=== PATIENT | male | born 2000 | race Two or more races ===

== ENCOUNTER 2024-01-31 18:38 | Observation (INO) | payer MEDICAID, SELFPAY ==
[2024-01-31 18:39] VITALS: BP 132/74; PULSE 49; RESP 17; TEMP 37.1; O2SAT 97
--- NOTE | 2024-01-31 19:04 | EKG_ITS ---
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
--- NOTE | 2024-01-31 19:47 | XR_ITS ---
Examination: PA chest single view Technique: Upright PA chest single view Exam date and time: January 31, 20242003 hrs. Indications: Bradycardia today. Findings: Mild enlargement cardiac contour No pneumonia or pulmonary edema. The osseous structures are intact Impression: Mild enlargement cardiac contour
--- NOTE | 2024-01-31 19:48 | EDRME_ITS ---
Rapid Medical Screening Exam [facility] Arrival date/time: 01/31/24 18:38 23M with no significant PMH presents to ED with 3 days of slow HR and dizziness that is worse with head movement. Patient denies drug/alcohol use and doesn't take any meds. Chief Complaint: Dizziness Vital signs: Vital Signs Temperature 98.7 F 01/31/24 18:39 Pulse Rate 49 L 01/31/24 18:39 Respiratory Rate 17 01/31/24 18:39 Blood Pressure 132/74 H 01/31/24 18:39 Pulse Oximetry (%) 97 01/31/24 18:39 Oxygen Delivery Method Room Air 01/31/24 18:39
[2024-01-31 19:55] LABS: Collection Type, Urine Clean Catch; RBC,Urine 0 /hpf (0-3); WBC,Urine 0 /hpf (0-5)
[2024-01-31 20:04] LABS: Bilirubin,Urine Negative (Negative); Blood,Urine Negative (Negative); Clarity,Urine Clear (Clear/Hazy); Color,Urine Colorless (Lt Yel-Yel); Glucose, Urine 4+ (Negative); Ketones,Urine Negative (Negative); Leukocyte Esterase,Urine Negative (Negative); Nitrite,Urine Negative (Negative); Protein,Urine Negative (Neg - Trace); Specific Gravity,Urine 1.025 (1.001-1.035); Squamous Epithelial Cell,Urine < 1 /hpf (0-5); Urobilinogen,Urine Negative mg/dL (0.0-1.0)
[2024-01-31 20:13] LABS: Basophils # (Auto) 0.1 Thou/mm3 (0.0-0.2); Basophils % (Auto) 1 % (0-2.5); Eosinophils # (Auto) 0.2 Thou/mm3 (0.0-0.5); Eosinophils % (Auto) 3 % (0-10); Hematocrit 44.7 % (41.0-53.0); Hemoglobin 15.5 g/dL (13.5-16.0); Immature Granulocytes % (Auto) 0 % (0-0); Immature Granulocytes Auto 0.01 Thou/mm3 (0.00-0.00); Lymphocytes # (Auto) 3.3 Thou/mm3 (1.0-4.8); Lymphocytes % (Auto) 40 % (10-50); Mean Corpuscular HGB Conc 34.7 g/dl (31.0-37.0); Mean Corpuscular Hemoglobin 30.2 pg (25.0-35.0); Mean Corpuscular Volume 87 fL (80-100); Monocytes # (Auto) 0.7 Thou/mm3 (0.0-0.8); Monocytes % (Auto) 9 % (0-12); Neutrophils # (Auto) 3.8 Thou/mm3 (1.8-7.7); Neutrophils % (Auto) 47 % (37-80); Nucleated Red Blood Cell % 0 /100 WBC (0); Platelet Count 185 Thou/mm3 (140-440); RDW Standard Deviation 40.4 fL (35.1-43.9); Red Blood Count 5.14 Miln/mm3 (4.50-5.90); White Blood Count 8.1 Thou/mm3 (3.8-10.6)
[2024-01-31 20:28] LABS: B-Type Natriuretic Peptide < 20 pg/mL (0-100)
[2024-01-31 20:29] LABS: Alanine Aminotransferase 242 U/L (10-49); Albumin, Serum 5.1 gm/dL (3.5-5.0); Albumin/Globulin Ratio 1.8 (1.2-2.2); Alcohol, Blood Medical < 3.0 mg/dL (0-10.0); Alkaline Phosphatase 172 U/L (46-116); Anion Gap 7 (7-16); Aspartate Amino Transferase 87 U/L (0-34); BUN/Creatinine Ratio 18 Ratio (12-20); Bilirubin,Total 0.5 mg/dL (0.3-1.2); Blood Urea Nitrogen 14 mg/dL (9-23); Calcium 10.2 mg/dL (8.3-10.6); Calcium (Corrected) 10.2 mg/dL (8.5-10.1); Carbon Dioxide 27.1 mMol/L (20.0-31.0); Chloride 100 mMol/L (98-107); Creatinine (Component) 0.8 mg/dL (0.6-1.3); Globulin 2.8 gm/dL (2.3-3.5); Glucose 331 mg/dL (74-106); Osmolality,Calculated 281 (275-295); Potassium 4.1 mMol/L (3.4-5.1); Sodium 134 mMol/L (136-145); Total Protein 7.9 gm/dL (5.7-8.2); Troponin I < 0.020 ng/mL (0.0-0.045); eGFR > 60 See Note
[2024-01-31 21:17] LABS: Amphetamine/Methamp Scrn,U Negative (Negative); Barbiturate Screen,Urine Negative (Negative); Benzodiazepines Screen,Urine Negative (Negative); Benzoylecgonine Screen, Ur Negative (Negative); Fentanyl Screen,Urine Negative (Negative); Opiate Screen,Urine Negative (Negative); THC Screen,Urine Negative (Negative)
[2024-01-31 21:33] LABS: Glucose Estimated Average 292 mg/dL (80-131); Hemoglobin A1C 11.8 % Hgb (4.8-6.0)
--- NOTE | 2024-01-31 21:41 | PD.EDDIZZY ---
ED Dizzyness RME/HPI General Chief Complaint: Dizziness Stated Complaint: LOW HR, DIZZY Arrival date/time: 01/31/24 18:38 Limitations: no limitations RME / HPI RME / HPI Narrative: 01/31/24 18:38 23M with no significant PMH presents to ED with 3 days of slow HR and dizziness that is worse with head movement. Patient denies drug/alcohol use and doesn't take any meds. DR. FUNK MAIN ED EVALUATION: 23 year old male presents to the Emergency Department with complaint of dizziness onset 3 days ago. Associated symptoms include polydipsia and polyuria, especially at night about 2-3 times. He also mentions losing about 10 pounds but unknown timeframe. His sister is at the bedside and states that he has periods where she thinks that his blood sugar drops and he becomes sweaty . She is given him candy 1 other time a few weeks ago that seem to make him better . The patient has not been eating sweets or sodas in the last 1 week. Denies any known diabetes history. PMHx: Denies any PMHx, surgeries, daily medications, or known allergies. No significant family history. Social Hx: Alcohol use, drinks 32 oz Modelo beer. Related Data Previous Rx's ?Medication ?Instructions ?Recorded blood sugar diagnostic (Blood #25 ea 01/31/24 Glucose Test strips) blood-glucose meter (Accu-Chek #1 ea 01/31/24 Guide Glucose Meter) blood-glucose sensor (FreeStyle #2 ea 01/31/24 Bennett 3 Sensor device) lancets 28 gauge (Comfort EZ #100 ea 01/31/24 Lancets) metformin 500 mg tablet 500 mg PO BID diabetes #60 tabs 01/31/24 Allergies Allergy/AdvReac Type Severity Reaction Status Date / Time No Known Allergies Allergy Verified 01/31/24 18:40 Review of Systems Review of Systems Systems Reviewed: All systems reviewed, normal except as documented Narrative Review of Systems: GEN: No fever, no chills, + weight loss (losing about 10 pounds but unknown timeframe), + polydipsia, + polyuria EYES: No discharge, no visual changes, no pain HEENT: No ear pain, no congestion, no sore throat PULM: No shortness of breath, no cough, no congestion CV: No chest pain, no dyspnea on exertion, no palpitations GI: No nausea, no vomiting, no diarrhea, no pain, no constipation : No frequency, no urgency and no dysuria MUSC/SKEL: No joint pain, no back pain SKIN: No rash PSYCH: No hallucinations, no depression HEME/LYMPH: No easy bleeding or bruising tendencies NEURO: No weakness, no headache, + dizziness Past Medical History Social History SMOKING STATUS: Never smoker SUBSTANCE USE: does not use ALCOHOL: Current ED Exam General Limitations: Present no limitations General appearance: Present alert and in no apparent distress Head Head exam: Present atraumatic, normocephalic and normal inspection Eye Eye exam: Present normal appearance, PERRL and EOMI ENT ENT exam: Present normal exam, normal oropharynx and mucous membranes moist Neck Neck exam: Present normal inspection, full ROM and trachea midline Chest Chest inspection: Present normal inspection and symmetric chest wall rise Respiratory Respiratory exam: Present normal lung sounds bilaterally Cardiovascular Cardiovascular exam: Present regular rate, normal rhythm and normal heart sounds Abdominal Exam Abdominal exam: Present soft and normal bowel sounds Extremities Exam Extremities exam: Present normal inspection and full ROM Back Exam Back exam: Present normal inspection and full ROM Neurological Exam Neurological exam: Present alert, oriented X3 and CN II-XII intact Psychiatric Psychiatric exam: Present normal affect and normal mood Skin Skin exam: Present warm, dry, intact and normal color Course Quality Measures none Orders Category Date Time Status COVID-19 Screening Questionnaire NOW Care 01/31/24 23:53 Active Decision to Admit X1 Care 01/31/24 23:53 Active EKG (ED ONLY) *Do not use* NOW Care 01/31/24 19:04 Completed EKG (ED Only) Stat Exams 01/31/24 19:04 Draft XR chest 1V portable Stat Exams 01/31/24 19:47 Completed A1C [Glycohemoglobin w (eAG)] Stat Lab 01/31/24 19:53 Completed Alcohol, Blood Medical Stat Lab 01/31/24 19:53 Completed B-Type Natriuretic Peptide Stat Lab 01/31/24 19:53 Completed CBC Stat Lab 01/31/24 19:53 Completed Comprehensive Metabolic Panel Stat Lab 01/31/24 19:53 Completed Drug Screen,Urine Stat Lab 01/31/24 19:49 Completed Magnesium Stat Lab 01/31/24 19:53 Completed Troponin I Stat Lab 01/31/24 19:53 Completed Urinalysis Stat Lab 01/31/24 19:49 Completed Insulin Regular Med 01/31/24 23:22 Discontinued 5 unit IV X1 ONE Sodium Chloride 0.9% 1000 ml [Ns] 1,000 ml Med 01/31/24 23:22 Active IV 999 mls/hr Vital Signs Vital signs: Vital Signs Temperature 98.7 F 01/31/24 18:39 Pulse Rate 49 L 01/31/24 18:39 Respiratory Rate 17 01/31/24 18:39 Blood Pressure 132/74 H 01/31/24 18:39 Pulse Oximetry (%) 97 01/31/24 18:39 Oxygen Delivery Method Room Air 01/31/24 18:39 Procedures -ED EKG Interpretation #1: Date of EK01/31/24 Time of EK:38 Rate: 49 Interpretation: Interpreted by me Additional EKG comment: sinus bradycardia, rate 49, normal intervals, flattening in lead 3, good R wave progression Dizziness MDM Narrative MDM Narrative:: I, Merna Liriano, am scribing for and in the presence of Dr. Funk. Differential diagnosis includes: New onset diabetes, arrhythmia, electrolyte abnormality, DKA, dehydration. 23 yo with 2 weeks of increased thirst, getting up multiple times at night to urinate, weight loss with elevated blood sugar in Emergency Department. Patient is also complaining of dizziness and EKG shows bradycardia of 49 however this may be normal for young person. With the combination of his high blood sugar and dizziness patient will need close follow-up for his diabetes 2300: Discussed the medicine team for consult for recommendations versus inpatient or outpatient treatment. 2332: The resident with Dr. Leblanc request metformin BID. I will ask our charge nurse has spoke to the warehouse assembly worker, to see if we can get diabetic teaching for how to give insulin, how to check his blood sugar, and other follow-up to include nutrition, pending follow-up in the clinic. This patient does not have primary care and likely will need to follow-up in the resident clinic. Patient data External records reviewed:: None (no previous visits) Clinical information provided by:: patient and spouse Social determinants that could affect healthcare access:: alcohol use (Alcohol use, drinks 32 oz Modelo beer.) Patient has the following chronic illnesses:: Denies any PMHx, surgeries, daily medications, or known allergies. How is presenting disease/condition affected by chronic disease/condition?: no chronic disease Evaluation data The following diagnostics were reviewed and interpreted by me:: lab results, radiology exam(s) and EKG tracing(s) Lab and/or radiology exams considered but not ordered:: none Interpretation Summary: CXR shows mild cardiomegaly, no CHF, no pneumonia, no infiltrates, according to my interpretation. ----- Exam: 1 view portable chest xray Indication: bradycardia My interpretation: Lungs clear, no consolidation, normal cardiac silhouette, soft tissue normal Overall impression: no acute process. Procedure(s): XR chest 1V portable Accession Number(s): [id number] cc: Mo Adhikari MD; Lito Cheek MD; Jerrod Botello PA-C~ Examination: PA chest single view Technique: Upright PA chest single view Exam date and time: January 31, 20242003 hrs. Indications: Bradycardia today. Findings: Mild enlargement cardiac contour No pneumonia or pulmonary edema. The osseous structures are intact Impression: Mild enlargement cardiac contour Dictated By: Lito Cheek MD Medications / Prescriptions Medications or Prescriptions considered but not ordered:: none Medication administrations:: Medication Administration History Sodium Chloride (Ns) 1,000 mls @ 999 mls/hr IV .Q1H1M ONE Stop: 02/01/24 00:22 Last Admin: 01/31/24 23:26 Dose: 999 mls/hr Documented By: LIANNE Discontinued Medications Insulin Human Regular (Insulin Hum Regular 1 Unit/0.01 Ml (Per Unit)) 5 unit IV X1 ONE Stop: 01/31/24 23:23 Last Admin: 01/31/24 23:26 Dose: 5 unit Documented By: LIANNE Co-signed By: ZOLTAN see above if any Consultations Consultation(s) initiated? (list below): Yes Consultation #1 (Physician, Specialty, Details): Discussed case with [Dr. Leblanc] from Hospitalist service regarding admission. Discussed patients ED course, exam findings, labs, and radiology results. States that since the patient has a HR of 47 and possible enlarged heart on the CXR, he will admit the patient for symptomatic bradycardia. Time: 23:52 Diagnosis Dizziness Differential Diagnosis: other (New onset diabetes, arrhythmia, electrolyte abnormality, DKA, dehydration) Most likely diagnosis given after review of the tests above:: see below Admission Indicated Admission indicated?: indicated Admission Request Was there a request for admission?: Yes Admission Attestation Admission request attestation: Discussed case with [] from Hospitalist service regarding admission. Discussed patients ED course, exam findings, labs, and radiology results. The Hospitalist [agrees,declines] to accept the patient for admission. Disposition Plan Disposition Plan: Admit Discharge Plan Prescriptions/Referrals Prescriptions/Med Rec: New metformin 500 mg tablet 500 mg PO BID MDD 1000 mg Qty: 60 0RF Rx Instructions: Take 1 tablet in the morning and 1 tablet in the evening (DME) FreeStyle Bennett 3 Sensor Device See Rx Instructions .Route Qty: 2 3RF Rx Instructions: As directed (DME) Blood Glucose Test Strip See Rx Instructions .Route Qty: 25 0RF Rx Instructions: As directed (DME) lancets [Comfort EZ Lancets] 28 gauge misc See Rx Instructions .Route Qty: 100 0RF Rx Instructions: As directed (DME) blood-glucose meter [Accu-Chek Guide Glucose Meter] Misc See Rx Instructions .Route Qty: 1 0RF Rx Instructions: As directed Referrals: Mo Adhikari MD [Primary Care Provider] - In 1 week Problem List Clinical Impression: Dizziness, Symptomatic bradycardia, Acute hyperglycemia Patient/Caregiver Discharge Instructions Other Activity Instructions:: Please follow up at the [facility] with Dr. Vargas on 02/02/2024 at 10:00 AM. Card has been provided. [address] [place], [place] [id number] Additional Instructions: Please follow-up with the clinic Friday morning at 10 AM so that you get further teaching for your new onset diabetes. Start all your medications/diet as per Dr. Leblanc. Return to the emergency department before your appointment on Friday if you have increasing dizziness, you feel like you are going to pass out, and are sweaty, you are vomiting cannot tolerate water, or any other concerns Print Language: New Zealander Stand Alone Forms: Geetha Award Info., Patient Portal Info Letter
[2024-01-31 22:53] VITALS: BP 121/71; PULSE 51; RESP 17; TEMP 36.9; O2SAT 97
[2024-01-31 22:54] VITALS: BP 121/78; PULSE 47; RESP 18; O2SAT 96
[2024-01-31] MEDS: SODIUM CHLORIDE 0.9% 1000 ML 1,000 ML 999 ML IV (23:26)
[2024-01-31] MEDS: INSULIN HUM REGULAR 1 UNIT/0.01 ML (PER UNIT) 5 UNIT IV (23:26)
--- NOTE | 2024-01-31 23:36 | ESCONSULT_ITS ---
HPI Data of Consult Primary Care Provider: Mo Adhikari MD Consult Narrative Reason for consult: New onset diabetes History of present illness: Patient is a Jamaican-speaking 23-year-old male with no known medical history who presented to the ED on 01/31/2024 with symptoms of dizziness which has been present for 3 days but worse today prompting him to come into the ED. Patient states that the dizziness feels like lightheadedness and is intermittent. He also endorses excessive thirst and excessive urination, especially during the night. He denies any nausea, vomiting, diarrhea, or abdominal pain. He denies fevers, chills, sweats, or shortness of breath. He states that he went to a massage place yesterday which gave him a vitamin to help with energy but felt it did not help. Patient is present with who speaks Gambian. Patient denies any personal history of having high blood sugars or diabetes or any known family history of diabetes. ED Course: -Initial vitals were notable for bradycardia of 40-50 otherwise hemodynamically stable -Labs significant for blood glucose 331, hemoglobin A1c 11.8, corrected calcium 10.2, AST 87, ALT 242, alkaline phosphatase 172 -UA notable for glucose 4+ -Internal medicine consultation was requested for new onset diabetes education and recommendations. Review of Systems Review of systems otherwise negative except what is mentioned above. cc:: cc: Past Medical History Past Medical History Comments PMH COMMENT: Past Medical History: None Family History: No known past medical history of diabetes Surgical History: None Social History: Denies history of smoking, occasional alcohol use, denies recreational drug use Current Medications: None Allergies: No known drug allergies Exam Vital Signs Temp Pulse Resp BP Pulse Ox O2 Del Method 98.5 F 47 L 18 121/78 96 Room Air 01/31/24 22:53 01/31/24 22:54 01/31/24 22:54 01/31/24 22:54 01/31/24 22:54 01/31/24 22:54 Narrative Exam Physical Exam General: Awake and in no acute distress. Conversational and non-toxic appearing. HEENT: Normocephalic, atraumatic, mucous membranes dry. Heart: Regular rate and rhythm, no murmurs. Lungs: Clear to auscultation with no wheezing or crackles. Abdomen: Soft, nondistended, nontender, positive bowel sounds. ?No guarding or rebound tenderness. Neurologic: Alert and oriented x3, no gross neurological deficit, and patient able to move all 4 extremities. Extremities: No edema. Skin: No rash or ecchymoses. Results Labs 02/03/24 05:49 02/03/24 05:49 Labs: Short CBC 01/31/24 Range/Units 19:53 WBC 8.1 (3.8-10.6) Thou/mm3 Hgb 15.5 (13.5-16.0) g/dL Hct 44.7 (41.0-53.0) % Plt Count 185 (140-440) Thou/mm3 BMP 01/31/24 19:53 Sodium 134 L Potassium 4.1 Chloride 100 Carbon Dioxide 27.1 BUN 14 Creatinine 0.8 Glucose 331 H Calcium 10.2 Cardiac Enzymes 01/31/24 Range/Units 19:53 Troponin I < 0.020 (0.0-0.045) ng/mL Liver Function 01/31/24 Range/Units 19:53 Total Bilirubin 0.5 (0.3-1.2) mg/dL AST 87 H (0-34) U/L ALT 242 H (10-49) U/L Alkaline Phosphatase 172 H (46-116) U/L Albumin 5.1 H (3.5-5.0) gm/dL Urine 01/31/24 Range/Units 19:49 Urine Color Colorless A (Lt Yel-Yel) Urine Clarity Clear (Clear/Hazy) Urine pH 6.0 (5.0-7.0) Ur Specific [place] 1.025 (1.001-1.035) Urine Protein Negative (Neg - Trace) Urine Glucose (UA) 4+ A (Negative) Quality Measures Quality Measures none Medications Home Medications and Allergies Allergies Allergy/AdvReac Type Severity Reaction Status Date / Time No Known Allergies Allergy Verified 01/31/24 18:40 Visit Medications Sodium Chloride (Ns) 1,000 mls @ 999 mls/hr IV .Q1H1M ONE Stop: 02/01/24 00:22 Last Admin: 01/31/24 23:26 Dose: 999 mls/hr Discontinued Medications Insulin Human Regular (Insulin Hum Regular 1 Unit/0.01 Ml (Per Unit)) 5 unit IV X1 ONE Stop: 01/31/24 23:23 Last Admin: 01/31/24 23:26 Dose: 5 unit Assessment & Plan Plan Patient is a 23-year-old male with no known past medical history who presented to the ED on 01/31/2024 with a chief complaint of dizziness. Patient was found to have a blood glucose of 331 on chem panel and A1c of 11.8. Consultation was requested for recommendations for new onset diabetes. #New onset diabetes, type 1 versus type 2 #Hyperglycemia On ER evaluation blood glucose was 331, hemoglobin A1c 11.8. UA positive for glucose 4+. -Official Jamaican video quilt sewer was used and patient was provided 30 minutes of education regarding his new diagnosis of diabetes -Recommend starting metformin 500 mg BID -Patient was instructed to go to [facility] pharmacy tomorrow, Friday morning to picker operator prescriptions -Patient was prescribed FreeStyle Bennett 3 sensor and instructed to use his smart phone to follow glucose readings -Patient instructed to ask pharmacy regarding application of sensor, if cannot be placed then sensor to be brought to the clinic for help with application. Additional prescription has been sent for traditional glucose reader, lancets, and test strips in case Bennett is not covered by insurance. -Patient was instructed to follow up at the [facility] on 02/02/2024 at 10:[address] Vargas and was given business card with address and phone number Patient plan of care was discussed with the attending physician, Dr. Lowe. Rossi Vargas, PGY-2 Attending Provider Attestation/Addendum Patient was admitted for symptomatic bradycardia as discussed with the ER physician Dr. Dylon boyd. See separate H&P.
[2024-02-01] VITALS (8 sets, daily range): BP systolic 124–137; BP diastolic 66–109; PULSE 44–62; RESP 12–18; TEMP 36.1–36.4; O2SAT 97–100; BMI 26.4
--- NOTE | 2024-02-01 00:41 | ECHO_ITS ---
Transthoracic Echo Report Ht (in): 64 Wt (lb): 154 Exam Location: Portable Status: Inpatient Fire Lieutenant Marine: Yulissa Gonzalez Indications: Procedure Performed: BP: 122 / 74 HR: 55 Rhythm: Bradycardia Technical Quality: Fair MEASUREMENTS (Male / Female) Normal Values 2D ECHO LV Diastolic Diameter PLAX 5.3 cm 4.2 - 5.9 / 3.9 - 5.3 cm LV Systolic Diameter PLAX 3.7 cm IVS Diastolic Thickness 0.9 cm 0.6 - 1.0 / 0.6 - 0.9 cm LVPW Diastolic Thickness 0.9 cm 0.6 - 1.0 / 0.6 - 0.9 cm LV Relative Wall Thickness 0.3 LVOT Diameter 2.2 cm LA Volume Index 24.9 cm?/m? 16 - 28 cm?/m? Ascending Aorta Diameter 2.9 cm M-MODE Aortic Root Diameter MM 3.0 cm LA Systolic Diameter MM 3.8 cm LA Ao Ratio MM 1.3 AV Cusp Separation MM 2.3 cm DOPPLER AV Peak Velocity 162.0 cm/s AV Peak Gradient 10.5 mmHg AV Mean Gradient 5.0 mmHg AV Velocity Time Integral 31.9 cm LVOT Peak Velocity 103.0 cm/s LVOT Peak Gradient 4.2 mmHg LVOT Velocity Time Integral 19.6 cm LVOT Cardiac Index 2287.3 cm?/min?m? AV Area Cont Eq vti 2.3 cm? AV Area Cont Eq pk 2.4 cm? MV Peak Velocity 100.0 cm/s MV Peak Gradient 4.0 mmHg MV Mean Velocity 50.0 cm/s MV Mean Gradient 1.0 mmHg MV Area PHT 4.1 cm? Mitral E Point Velocity 93.6 cm/s Mitral A Point Velocity 66.9 cm/s Mitral E to A Ratio 1.4 LV E' Lateral Velocity 16.2 cm/s Mitral E to LV E' Lateral Ratio 5.8 LV E' Septal Velocity 12.3 cm/s Mitral E to LV E' Septal Ratio 7.6 TR Peak Velocity 206.0 cm/s TR Peak Gradient 17.0 mmHg FINDINGS Left Ventricle Normal left ventricular size, wall thickness, systolic function with no obvious regional wall motion abnormalities. The ejection fraction is visually estimated at 55-60%. Right Ventricle The right ventricle is normal in size and systolic function. The estimated right ventricular systoli c pressure, 32 mmHg. RAP 5. Left Atrium The left atrium is normal by two-dimensional, color flow and Doppler imaging with no structural abnormalities, no thrombus formation present. Right Atrium The right atrium is normal by two-dimensional imaging, color flow and Doppler imaging with no struct ural abnormalities, no thrombus formation present. Atrial Septum The interatrial septum appears normal with no evidence of a shunt. Aorta The aorta is normal by two-dimensional, color flow and Doppler interrogation. Mitral Valve The mitral valve is normal by two-dimensional, color flow and Doppler interrogation. There is trace mitral valve regurgitation. Aortic Valve The aortic valve is trileaflet and normal by two-dimensional, color flow and Doppler interrogation. There is no significant aortic valve regurgitation. Tricuspid Valve The tricuspid valve is normal by two-dimensional, color flow and Doppler interrogation. There is mil d tricuspid valve regurgitation. Pulmonic Valve There is no significant pulmonic valve regurgitation. Vessels The pulmonary artery appears normal. The inferior vena cava pulmonary and hepatic veins appear fabiola l. Pericardium The pericardium is normal by two-dimensional imaging. There is no significant pericardial effusion. CONCLUSIONS Normal LV size and function. Estimated EF 55-60% Normal RV size and function Trace MR. Mild TR. Daisy Osuna (Electronically Signed) Final Date: 02 February 2024 16:44
--- NOTE | 2024-02-01 00:46 | PD.HHHP ---
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 Patient had onset of symptoms 3 days prior to this admission. His is at bedside and translated. The patient feels dizzy with usual activity. Symptoms are mild to moderate lasting few minutes. No relieving factors mentioned. Symptoms exacerbated by movement or motion. He has no blurred vision. He is lightheaded. He has no syncopal or presyncopal episode. He denies headache. The patient mentioned that he had chest pain last year at this time. He is not short of breath. He has no nausea vomiting he drinks beer almost every day. He does not smoke. There is no family history reported. Patient was noted to have high blood glucose level in the emergency room. Initial evaluation was for diabetes education/consultation. However the patient was noted to have a heart rate in the 40s and symptomatic. Past medical history: No diabetes, no hypertension, no stroke, no cancer Surgical history: no appendectomy, no gallbladder surgery Personal history: non smoker, ETOH drinker, no recreational drug use. Family history: no diabetes, no hypertension, no heart disease, no cancer. Immunization: None reported Review of Systems Review of Systems Systems Reviewed: All systems reviewed, normal except as documented Meds Home Medications and Allergies Allergies Allergy/AdvReac Type Severity Reaction Status Date / Time No Known Allergies Allergy Verified 01/31/24 18:40 Exam Vital Signs Temp Pulse Resp BP Pulse Ox O2 Del Method 98.5 F 47 L 18 121/78 96 Room Air 01/31/24 22:53 01/31/24 22:54 01/31/24 22:54 01/31/24 22:54 01/31/24 22:54 01/31/24 22:54 Gen: alert, oriented, no distress Skin: warm, good turgor, no rash HEENT: NCAT, PHONG, no nasoaural discharge, moist mucous membranes Neck: supple, no JVD, no thyromegaly Lungs: clear to auscultation CV: bradycardic no murmurs, no edema Abd: soft and non tender, normoactive bowel sounds : no CVA tenderness Ext: no calf tenderness. Neuro: alert, oriented, non focal Psych: calm, cooperative, not depressed. Results - Hospitalist Labs Diagrams: 01/31/24 19:53 01/31/24 19:53 Labs: Short CBC 01/31/24 Range/Units 19:53 WBC 8.1 (3.8-10.6) Thou/mm3 Hgb 15.5 (13.5-16.0) g/dL Hct 44.7 (41.0-53.0) % Plt Count 185 (140-440) Thou/mm3 BMP 01/31/24 19:53 Sodium 134 L Potassium 4.1 Chloride 100 Carbon Dioxide 27.1 BUN 14 Creatinine 0.8 Glucose 331 H Calcium 10.2 Cardiac Enzymes 01/31/24 Range/Units 19:53 Troponin I < 0.020 (0.0-0.045) ng/mL Liver Function 01/31/24 Range/Units 19:53 Total Bilirubin 0.5 (0.3-1.2) mg/dL AST 87 H (0-34) U/L ALT 242 H (10-49) U/L Alkaline Phosphatase 172 H (46-116) U/L Albumin 5.1 H (3.5-5.0) gm/dL Urine 01/31/24 Range/Units 19:49 Urine Color Colorless A (Lt Yel-Yel) Urine Clarity Clear (Clear/Hazy) Urine pH 6.0 (5.0-7.0) Ur Specific [place] 1.025 (1.001-1.035) Urine Protein Negative (Neg - Trace) Urine Glucose (UA) 4+ A (Negative) Assessment & Plan -Hospitalist Patient Synopsis 23-year-old Russian-speaking male patient with no known past medical history was brought to the ER today complaining of dizziness for 3 days patient also has polyuria and polydipsia. The patient was found to have blood glucose of 331. His heart rate is in the 40s. Blood pressure stable. He is afebrile. Patient will be admitted for symptomatic bradycardia, however symptoms can be due to dehydration, hyperglycemia. He has elevated transaminases. He drinks alcohol almost daily. 1. Symptomatic bradycardia. -Patient heart rate in the 40s. The patient is dizzy with with movement and when he stood up. - Orthostatics checked in the ER, no orthostatic changes. -The patient will be admitted to [facility] telemetry/observation -Continue cardiac monitoring -Echocardiogram requested -EKG showed sinus bradycardia with indeterminate axis -Chest x-ray with minimally enlarged cardiac silhouette. 2. Hyperglycemia -Patient's A1c is 11.8 - DM 2 - lispro sliding scale, Lantus 10 unitis daily -Diabetes education will be provided. -Patient will need follow-up in the clinic/establish with endocrinology & PCP. 3. Transaminitis -probably related to chronic alcohol use. -check GGT 4. Pseudohyponatremia - no clinical significance. 5. Alcoholism - counselling, refer to SW - thiamine and Folic acid - DVT ppx: SCD GI ppx. Early ambulation if tolerated. Routine skin care. Review and reconcile home medications. Physical therapy eval and treatment as indicated. Smoking cessation as indicated. Code status: Full SDM: PCP: None none Daytime hospitalist will follow hospital course and make necessary diagnostic and treatment plan. Quality Measures Quality Measures none
[2024-02-01 01:52] LABS: Troponin I < 0.020 ng/mL (0.0-0.045)
[2024-02-01] MEDS: SODIUM CHLORIDE 0.9% 1000 ML 1,000 ML 125 ML IV (02:01)
--- NOTE | 2024-02-01 02:38 | PC.NURSE ---
report called to Tyrone RENEE
[2024-02-01 06:45] LABS: Alanine Aminotransferase 211 U/L (10-49); Albumin, Serum 4.8 gm/dL (3.5-5.0); Albumin/Globulin Ratio 2.3 (1.2-2.2); Alkaline Phosphatase 133 U/L (46-116); Anion Gap 7 (7-16); Aspartate Amino Transferase 80 U/L (0-34); BUN/Creatinine Ratio 17 Ratio (12-20); Bilirubin,Total 0.5 mg/dL (0.3-1.2); Blood Urea Nitrogen 12 mg/dL (9-23); Calcium 8.9 mg/dL (8.3-10.6); Calcium (Corrected) 8.9 mg/dL (8.5-10.1); Carbon Dioxide 25.8 mMol/L (20.0-31.0); Cardiac Risk Estimate 3.4 RATIO (4.0-6.7); Chloride 103 mMol/L (98-107); Cholesterol 188 mg/dL (132-200); Creatinine (Component) 0.7 mg/dL (0.6-1.3); Estimated Creatinine Clearance 135.1 mL/min (>60); Globulin 2.1 gm/dL (2.3-3.5); Glucose 237 mg/dL (74-106); HDL Cholesterol 56 mg/dL (40-60); LDL Cholesterol,Calculated 113 mg/dL (0-130); Magnesium 1.9 mg/dL (1.6-2.6); Osmolality,Calculated 279 (275-295); Sodium 136 mMol/L (136-145); Total Protein 6.9 gm/dL (5.7-8.2); Triglycerides 96 mg/dL (30-150); Troponin I < 0.020 ng/mL (0.0-0.045); eGFR > 60 See Note
--- NOTE | 2024-02-01 07:51 | PD.RESPRO ---
Documentation for date of: 02/01/24 Subjective Subjective Interval history: No acute overnight events. Patient had a restful sleep. Currently in bed, has not ambulated. Denies dizziness or lightheadedness. Denies fever, chills, headaches, chest pain, sob, cough, GI or urinary symptoms. Exam Vital Signs Temp Pulse Resp BP Pulse Ox O2 Del Method 97.0 F 62 17 136/109 H 100 Room Air 02/01/24 04:00 02/01/24 04:00 02/01/24 04:00 02/01/24 04:00 02/01/24 04:00 02/01/24 04:00 Narrative Exam GENERAL: HEENT: NCAT.?PHONG. Oral mucosa is moist. Patent Nares NECK: Supple, nontender, no thyromegaly, no meningismus, no JVD, no step offs CHEST: Symmetrical, atraumatic, and with equal expansion, Nontender on palpation no deformity and no crepitus. CARDIOVASCULAR: RRR, no m/g/r LUNGS: CTAB, no w/r/r. Symmetrical chest rise. No intercostal subcostal retraction. ABDOMEN: Soft, flat, nontender. No guarding/rebound tenderness/masses. +BS EXTREMITIES: Nontender.? No edema/cyanosis.?Moves all 4 extremities well, with full ROM and good CSM. SKIN: Warm and dry, no jaundice/rashes. MSK: No lumbar or midline, no CVA, no paraspinal muscle spasm or tenderness. NEURO: FISHER x4, CN II-XII grossly intact.?No focal neurologic deficits. PSYCHIATRIC: Normal mood and affect, cooperative, no SI or HI or hallucinations. Objective Labs 02/02/24 04:43 02/01/24 06:15 Labs: Laboratory Results - last 24 hr 01/31/24 01/31/24 02/01/24 19:49 19:53 01:15 WBC 8.1 RBC 5.14 Hgb 15.5 Hct 44.7 MCV 87 MCH 30.2 MCHC 34.7 RDW Std Deviation 40.4 Plt Count 185 Neut % (Auto) 47 Lymph % (Auto) 40 [place] % (Auto) 9 Eos % (Auto) 3 Baso % (Auto) 1 Neut # (Auto) 3.8 Lymph # (Auto) 3.3 [place] # (Auto) 0.7 Eos # (Auto) 0.2 Baso # (Auto) 0.1 Immature Gran # (Auto) 0.01 H Absolute Nucleated RBC 0.00 Immature Gran % 0 Nucleated RBC % 0 Sodium 134 L Potassium 4.1 Chloride 100 Carbon Dioxide 27.1 Anion Gap 7 BUN 14 Creatinine 0.8 Estim Creat Clear Calc Not Performed. eGFR > 60 BUN/Creatinine Ratio [address] Glu mg/dL 292 H Hemoglobin A1c 11.8 H Calculated Osmolality 281 Calcium 10.2 Corrected Calcium 10.2 H Magnesium 2.0 Total Bilirubin 0.5 AST 87 H ALT 242 H Alkaline Phosphatase 172 H Troponin I < 0.020 < 0.020 B-Natriuretic Peptide < 20 Total Protein 7.9 Albumin 5.1 H Globulin 2.8 Albumin/Globulin Ratio 1.8 Triglycerides Cholesterol LDL Cholesterol, Calc HDL Cholesterol Cholesterol/HDL Ratio TSH Ur Collection Type Clean Catch Urine Color Colorless A Urine Clarity Clear Urine pH 6.0 Ur Specific [place] 1.025 Urine Protein Negative Urine Glucose (UA) 4+ A Urine Ketones Negative Urine Blood Negative Urine Nitrite Negative Urine Bilirubin Negative Urine Urobilinogen (Auto) Negative Ur Leukocyte Esterase Negative Urine RBC 0 Urine WBC 0 Ur Squamous Epith Cells < 1 Urine Bacteria None Urine Opiates Screen Negative Urine Fentanyl Screen Negative Ur Barbiturates Screen Negative U Amphetamin/Meth Scrn Negative U Benzodiazepines Scrn Negative U Cocaine Metab Screen Negative U Marijuana (THC) Screen Negative Ethyl Alcohol < 3.0 02/01/24 06:15 WBC RBC Hgb Hct MCV MCH MCHC RDW Std Deviation Plt Count Neut % (Auto) Lymph % (Auto) [place] % (Auto) Eos % (Auto) Baso % (Auto) Neut # (Auto) Lymph # (Auto) [place] # (Auto) Eos # (Auto) Baso # (Auto) Immature Gran # (Auto) Absolute Nucleated RBC Immature Gran % Nucleated RBC % Sodium 136 Potassium 4.0 Chloride 103 Carbon Dioxide 25.8 Anion Gap 7 BUN 12 Creatinine 0.7 Estim Creat Clear Calc 135.1 eGFR > 60 BUN/Creatinine Ratio 17 Glucose [address] Glu mg/dL Hemoglobin A1c Calculated Osmolality 279 Calcium 8.9 Corrected Calcium 8.9 Magnesium 1.9 Total Bilirubin 0.5 AST 80 H ALT 211 H Alkaline Phosphatase 133 H D Troponin I < 0.020 B-Natriuretic Peptide Total Protein 6.9 Albumin 4.8 Globulin 2.1 L Albumin/Globulin Ratio 2.3 H Triglycerides 96 Cholesterol 188 LDL Cholesterol, Calc 113 HDL Cholesterol 56 Cholesterol/HDL Ratio 3.4 L TSH 6.50 H Ur Collection Type Urine Color Urine Clarity Urine pH Ur Specific [place] Urine Protein Urine Glucose (UA) Urine Ketones Urine Blood Urine Nitrite Urine Bilirubin Urine Urobilinogen (Auto) Ur Leukocyte Esterase Urine RBC Urine WBC Ur Squamous Epith Cells Urine Bacteria Urine Opiates Screen Urine Fentanyl Screen Ur Barbiturates Screen U Amphetamin/Meth Scrn U Benzodiazepines Scrn U Cocaine Metab Screen U Marijuana (THC) Screen Ethyl Alcohol Quality Measures Quality Measures none Assessment & Plan Assessment Current Active Medications: Generic Name Dose Route Start Last Admin Trade Name Freq PRN Reason Stop Dose Admin Acetaminophen 650 mg 02/01/24 00:35 Acetaminophen 325 Mg Tablet PO 03/02/24 00:34 Q6H PRN Fever >101.5 Dextrose 25 ml 02/01/24 00:53 Dextrose 50%-Water Inj 50 Ml Syringe IV 03/02/24 00:52 Q15MIN PRN BG 50-70 responsive npo pt Dextrose 50 ml 02/01/24 00:53 Dextrose 50%-Water Inj 50 Ml Syringe IV 03/02/24 00:52 Q15MIN PRN BG <50 OR BG <70 & pt unresponsive Folic Acid 1 mg 02/01/24 09:00 Folic Acid 1 Mg Tablet PO 03/02/24 08:59 DAILY BROOK Glucagon 1 mg 02/01/24 00:53 Glucagon Inj 1 Mg Vial IM Q15MIN PRN BG <70, and no IV access Sodium Chloride 1,000 mls @ 125 mls/hr 02/01/24 00:45 02/01/24 02:01 Ns IV 02/01/24 08:44 125 mls/hr .Q8H ONE Administration Insulin Human Lispro 0 unit 02/01/24 07:30 Insulin Lispro (Admelog) 1 Unit/0.01 Ml Unit SC 03/02/24 07:29 ACHS [facility] Protocol Thiamine HCl 100 mg 02/01/24 09:00 Thiamine 100 Mg Tablet PO 03/02/24 08:59 DAILY BROOK Plan In summary: 3-year-old male with no PMHx, came to ED with 2 days of dizziness, polyuria, polydipsia. Admitted for symptomatic sinus bradycardia HR 40s, and new onset diabetes, GLUCOSE 231, A1c 11.8. Pending cardiology recommendations for bradycardia # Symptomatic bradycardia Admission HR 40s, BP 132/74, patient complains of dizziness on standing up. No orthostatic changes on check in ER EKG sinus bradycardia, CXR minimally enlarged cardiac silhouette Currently, HR 62, BP 136/109 ? Med/tele ? Pending echocardiogram ? Pending cardiology recommendations # New onset diabetes Not previously diagnosed, A1c 11.8, GLUCOSE 237 ? Diabetes education ? Accu-Cheks ? CHO consistent diet - lispro sliding scale, Lantus 10 unitis daily # Transaminitis Chronic alcohol use, admission ALT 211, AST 80, ALP 133, inconsistent with alcoholic hepatitis pattern. Denies abdominal pain ? Pending hepatitis panel ? Pending abdominal ultrasound ? Pending GGT # Pseudohyponatremia ? No clinical significance # Alcoholism ? Counselling, refer to SW ? Given banana bag x 1 ? Thiamine and Folic acid Health maintenance Diet: CHO consistent GI prophylaxis: Not indicated DVT prophylaxis: SCDs Antibiotics: Not indicated CODE STATUS: Full code Disposition: Pending cardiology recommendations Patient case was discussed with attending, Cal Martinez MD and senior resident Dr. Mcallister. Loree Renner DO PGYI Attending Provider Attestation/Addendum I reviewed labs, imaging, EKG, home medications and prior available records. Face to face evaluation was performed by me. I have personally examined the patient and discussed assessment and plan with the IM team. I reviewed the resident note and agree with the plan with exceptions as below. Symptomatic bradycardia: Likely related to hyperglycemia and less likely symptomatic bradycardia. Management of hyperglycemia as below. Ordered echocardiogram. Avoid beta-blockers and calcium channel blockers. Consulted cardiology. Continue telemetry. Transaminitis: Ordered liver ultrasound and acute hepatitis panel. Monitor LFTs. New onset diabetes mellitus: Likely type I. Started the patient on insulin Lantus plus sliding scale insulin. Monitor fingersticks.
[2024-02-01] MEDS: INSULIN LISPRO (AdmeLOG) 1 UNIT/0.01 ML UNIT SC ×4 (07:58→20:57)
--- NOTE | 2024-02-01 09:00 | EKG_ITS ---
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
[2024-02-01] MEDS: FOLIC ACID 1 MG TABLET PO (09:02)
[2024-02-01] MEDS: THIAMINE 100 MG TABLET PO (09:02)
--- NOTE | 2024-02-01 10:22 | XR_ITS ---
Examination: Abdomen sonogram, complete Date and time of exam: February 01, 2024 1106 hrs. Indications: Diagnosis acute hepatitis with abdominal pain beginning 5 days ago. Technique: Multiple real-time grayscale transabdominal sonographic images of the abdomen have been obtained. Findings: Normal gallbladder Normal common bile duct 0.3 cm Pancreatic head 2.3 cm Aorta not enlarged Liver 16.2 cm fatty infiltration no focal liver lesions Normal hepatopedal portal venous flow Patent IVC Right kidney 11.3 x 5.7 x 6.5 cm cortex 1.7 cm Left kidney 11.9 x 7.6 x 6.9 cm renal cortex 2.6 cm Moderate renal parenchymal scar formation No hydronephrosis Spleen 11.8 cm Impression: Normal gallbladder Normal common bile duct Mild hepatomegaly fatty liver Moderate bilateral renal parenchymal scar formation
--- NOTE | 2024-02-01 10:59 | PD.IMCONS ---
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 He has no syncopal or presyncopal episode. He denies headache. Patient was noted to have high blood glucose level in the emergency room. cc:: cc: Alvaro Lowe MD Meds Home Medications and Allergies Allergies Allergy/AdvReac Type Severity Reaction Status Date / Time No Known Allergies Allergy Verified 01/31/24 18:40 Exam Vital Signs Temp Pulse Resp BP Pulse Ox O2 Del Method 97.2 F 53 L 12 127/77 100 Room Air 02/01/24 08:00 02/01/24 08:00 02/01/24 08:00 02/01/24 08:00 02/01/24 08:00 02/01/24 08:00 Routine HEENT Exam Head: Present normocephalic and atraumatic Eye: Present EOMI and PERRL ENT: Present mucous membranes moist Routine Neck Exam Neck: Present supple and trachea midline Routine Respiratory Exam Respiratory: Present chest non-tender, lungs clear, normal breath sounds and no resp distress Routine Cardiovascular Exam Cardiovascular: Present RRR Routine Abdominal Exam Abdominal: Present soft and normoactive bowel sounds Routine Extremities Exam Extremities: Present full ROM Routine Skin Exam Skin: Present intact, dry and warm Routine Neurological Exam Neurological: Present alert, oriented X3 and CN II-XII intact Routine Psychiatric Exam Psychiatric: Present normal affect and normal thought process Results Labs 01/31/24 19:53 02/01/24 06:15 Labs: Short CBC 01/31/24 Range/Units 19:53 WBC 8.1 (3.8-10.6) Thou/mm3 Hgb 15.5 (13.5-16.0) g/dL Hct 44.7 (41.0-53.0) % Plt Count 185 (140-440) Thou/mm3 BMP 01/31/24 02/01/24 19:53 06:15 Sodium 134 L 136 Potassium 4.1 4.0 Chloride 100 103 Carbon Dioxide 27.1 25.8 BUN 14 12 Creatinine 0.8 0.7 Glucose 331 H 237 H D Calcium 10.2 8.9 Cardiac Enzymes 01/31/24 02/01/24 02/01/24 Range/Units 19:53 01:15 06:15 Troponin I < 0.020 < 0.020 < 0.020 (0.0-0.045) ng/mL Liver Function 01/31/24 02/01/24 Range/Units 19:53 06:15 Total Bilirubin 0.5 0.5 (0.3-1.2) mg/dL AST 87 H 80 H (0-34) U/L ALT 242 H 211 H (10-49) U/L Alkaline Phosphatase 172 H 133 H D (46-116) U/L Albumin 5.1 H 4.8 (3.5-5.0) gm/dL Urine 01/31/24 Range/Units 19:49 Urine Color Colorless A (Lt Yel-Yel) Urine Clarity Clear (Clear/Hazy) Urine pH 6.0 (5.0-7.0) Ur Specific [place] 1.025 (1.001-1.035) Urine Protein Negative (Neg - Trace) Urine Glucose (UA) 4+ A (Negative) Assessment and Plan Assessment and plan (1) Dizziness: Status: Acute (2) Diabetes 1.5, managed as type 2: Status: Acute Additional Assessment & Plan Additional Plan: pt's symptoms are most likely due to new onset diabetes contiue treatement for diabetes troponin negative obtain echo
[2024-02-01 13:15] LABS: Troponin I < 0.020 ng/mL (0.0-0.045)
[2024-02-01 14:34] LABS: Hepatitis A Antibody IgM Non Reactive (Non React); Hepatitis B Core Antibody IgM Non Reactive (Non React); Hepatitis B Surface Antigen Non Reactive (Non React); Hepatitis C Antibody Non Reactive (Non React)
[2024-02-02] VITALS: BP 129/72; PULSE 50; PULSE 56; RESP 20; TEMP 36.2; O2SAT 98
[2024-02-02 04:00] VITALS: BP 120/65; PULSE 47; PULSE 52; RESP 14; TEMP 36.6; O2SAT 97
[2024-02-02 05:16] LABS: Basophils # (Auto) 0.1 Thou/mm3 (0.0-0.2); Basophils % (Auto) 1 % (0-2.5); Eosinophils # (Auto) 0.2 Thou/mm3 (0.0-0.5); Eosinophils % (Auto) 3 % (0-10); Hematocrit 45.7 % (41.0-53.0); Hemoglobin 15.7 g/dL (13.5-16.0); Immature Granulocytes % (Auto) 0 % (0-0); Immature Granulocytes Auto 0.01 Thou/mm3 (0.00-0.00); Lymphocytes # (Auto) 2.8 Thou/mm3 (1.0-4.8); Lymphocytes % (Auto) 36 % (10-50); Mean Corpuscular HGB Conc 34.4 g/dl (31.0-37.0); Mean Corpuscular Hemoglobin 29.8 pg (25.0-35.0); Mean Corpuscular Volume 87 fL (80-100); Monocytes # (Auto) 0.7 Thou/mm3 (0.0-0.8); Monocytes % (Auto) 9 % (0-12); Neutrophils # (Auto) 3.8 Thou/mm3 (1.8-7.7); Neutrophils % (Auto) 50 % (37-80); Nucleated Red Blood Cell % 0 /100 WBC (0); Platelet Count 107 Thou/mm3 (140-440); RDW Standard Deviation 40.3 fL (35.1-43.9); Red Blood Count 5.26 Miln/mm3 (4.50-5.90); White Blood Count 7.6 Thou/mm3 (3.8-10.6)
[2024-02-02 05:40] LABS: Magnesium 2.2 mg/dL (1.6-2.6)
--- NOTE | 2024-02-02 07:48 | ESPR_ITS ---
<Statement entered by Noel Dos Santos MD - 02/03/24 08:27> Patient was seen and examined by me personally. I agree with most of the assessment and plan as discussed with the internship physician, and my attending, Dr. Martinez. Vitals, labs reveiwed, bradycardia noted. Pending echo. Appreciate cardio recs. Counseled patient extensively about glycemic control, with at bedside. Noel Dos Santos MD, PGY-3 Documentation for date of: 02/02/24 Subjective Subjective Interval history: No acute overnight events. Tolerating oral diet without nausea or vomiting. Ambulating within the room independently without lightheadedness. Denies fever, chills, headaches, chest pain, sob, cough, GI or urinary symptoms. Exam Vital Signs Temp Pulse Resp BP Pulse Ox O2 Del Method 97.8 F 47 L 14 120/65 97 Room Air 02/02/24 04:00 02/02/24 04:00 02/02/24 04:00 02/02/24 04:00 02/02/24 04:00 02/01/24 16:00 Narrative Exam GENERAL: HEENT: NCAT.?PHONG. Oral mucosa is moist. Patent Nares NECK: Supple, nontender, no thyromegaly, no meningismus, no JVD, no step offs CHEST: Symmetrical, atraumatic, and with equal expansion, Nontender on palpation no deformity and no crepitus. CARDIOVASCULAR: RRR, no m/g/r LUNGS: CTAB, no w/r/r. Symmetrical chest rise. No intercostal subcostal retraction. ABDOMEN: Soft, flat, nontender. No guarding/rebound tenderness/masses. +BS EXTREMITIES: Nontender.? No edema/cyanosis.?Moves all 4 extremities well, with full ROM and good CSM. SKIN: Warm and dry, no jaundice/rashes. MSK: No lumbar or midline, no CVA, no paraspinal muscle spasm or tenderness. NEURO: FISHER x4, CN II-XII grossly intact.?No focal neurologic deficits. PSYCHIATRIC: Normal mood and affect, cooperative, no SI or HI or hallucinations. Objective Labs 02/03/24 05:49 02/03/24 05:49 Labs: Laboratory Results - last 24 hr 02/01/24 02/02/24 12:40 04:43 WBC 7.6 RBC 5.26 Hgb 15.7 Hct 45.7 MCV 87 MCH 29.8 MCHC 34.4 RDW Std Deviation 40.3 Plt Count 107 L D Neut % (Auto) 50 Lymph % (Auto) 36 [place] % (Auto) 9 Eos % (Auto) 3 Baso % (Auto) 1 Neut # (Auto) 3.8 Lymph # (Auto) 2.8 [place] # (Auto) 0.7 Eos # (Auto) 0.2 Baso # (Auto) 0.1 Immature Gran # (Auto) 0.01 H Absolute Nucleated RBC 0.00 Immature Gran % 0 Nucleated RBC % 0 Magnesium 2.2 Troponin I < 0.020 Hepatitis A IgM Ab Non Reactive Hep Bs Antigen Non Reactive Hep B Core IgM Ab Non Reactive Hepatitis C Antibody Non Reactive Quality Measures Quality Measures none Assessment & Plan Assessment Current Active Medications: Generic Name Dose Route Start Last Admin Trade Name Freq PRN Reason Stop Dose Admin Acetaminophen 650 mg 02/01/24 00:35 Acetaminophen 325 Mg Tablet PO 03/02/24 00:34 Q6H PRN Fever >101.5 Dextrose 25 ml 02/01/24 00:53 Dextrose 50%-Water Inj 50 Ml Syringe IV 03/02/24 00:52 Q15MIN PRN BG 50-70 responsive npo pt Dextrose 50 ml 02/01/24 00:53 Dextrose 50%-Water Inj 50 Ml Syringe IV 03/02/24 00:52 Q15MIN PRN BG <50 OR BG <70 & pt unresponsive Folic Acid 1 mg 02/01/24 09:00 02/01/24 09:02 Folic Acid 1 Mg Tablet PO 03/02/24 08:59 1 mg DAILY BROOK Administration Glucagon 1 mg 02/01/24 00:53 Glucagon Inj 1 Mg Vial IM Q15MIN PRN BG <70, and no IV access Insulin Human Lispro 0 unit 02/01/24 07:30 02/01/24 20:57 Insulin Lispro (Admelog) 1 Unit/0.01 Ml Unit SC 03/02/24 07:29 4 unit ACHS [facility] Administration Protocol Thiamine HCl 100 mg 02/01/24 09:00 02/01/24 09:02 Thiamine 100 Mg Tablet PO 03/02/24 08:59 100 mg DAILY BROOK Administration Plan In summary: 3-year-old male with no PMHx, came to ED with 2 days of dizziness, polyuria, polydipsia. Admitted for symptomatic sinus bradycardia HR 40s, and new onset diabetes, GLUCOSE 231, A1c 11.8. Cardiology following, recommended monitoring and treating diabetes. Echocardiogram pending. Patient will likely discharge tomorrow if echocardiogram negative. # Symptomatic bradycardia # Subclinical Hypothyroidism Admission HR 40s, BP 132/74, patient complains of dizziness on standing up. No orthostatic changes on check in ER EKG sinus bradycardia, CXR minimally enlarged cardiac silhouette Currently, HR 62, BP 136/109 TSH 6.5, free T4 1.3 normal Cardiology following, pending echo, no recs yet ? Med/tele ? Pending echocardiogram ? Pending cardiology recommendations ? Will need outpatient f/u with PCP, recheck TSH/fT4 in 3 months # New onset diabetes Not previously diagnosed, A1c 11.8, GLUCOSE 237 ? Diabetes education ? Accu-Cheks ? CHO consistent diet ? Lispro sliding scale, Lantus 10 unitis daily # Transaminitis Chronic alcohol use, admission ALT 211, AST 80, ALP 133, inconsistent with alcoholic hepatitis pattern. Denies abdominal pain ? Pending hepatitis panel ? Pending abdominal ultrasound ? Pending GGT # Pseudohyponatremia ? No clinical significance # Alcoholism ? Counselling, refer to SW ? Given banana bag x 1 ? Thiamine and Folic acid # Thrombocytopenia PLT 107 today, no signs of active bleed, Hgb 15.7 ? Daily CBC Health maintenance Diet: CHO consistent GI prophylaxis: Not indicated DVT prophylaxis: SCDs Antibiotics: Not indicated CODE STATUS: Full code Disposition: Pending cardiology recommendations Patient case was discussed with attending, Cal Martinez MD and senior resident Dr. Mcallister. Loree Renner DO PGYI Attending Provider Attestation/Addendum I reviewed labs, imaging, EKG, home medications and prior available records. Face to face evaluation was performed by me. I have personally examined the patient and discussed assessment and plan with the IM team. I reviewed the resident note and agree with the plan with exceptions as below. Symptomatic bradycardia: Likely related to hyperglycemia and less likely symptomatic bradycardia. Management of hyperglycemia as below. Ordered echocardiogram. Ordered free T4 that was WNL. Avoid beta-blockers and calcium channel blockers. Consulted cardiology. Continue telemetry. Transaminitis: Ordered liver ultrasound and acute hepatitis panel. Monitor LFTs. New onset diabetes mellitus: Likely type I. Started the patient on insulin Lantus plus sliding scale insulin. Monitor fingersticks. Thrombocytopenia: Mild. No signs of active bleeding. Monitor platelet level.
[2024-02-02 08:00] VITALS: BP 127/76; PULSE 48; PULSE 52; RESP 13; TEMP 36; O2SAT 98
[2024-02-02] MEDS: INSULIN LISPRO (AdmeLOG) 1 UNIT/0.01 ML UNIT SC ×4 (08:17→21:18)
[2024-02-02] MEDS: INSULIN GLARGINE (Lantus) 5 UNIT/0.05 ML (PER 5 UNITS) SC ×2 (08:18→21:21)
[2024-02-02] MEDS: FOLIC ACID 1 MG TABLET PO (08:19)
[2024-02-02] MEDS: THIAMINE 100 MG TABLET PO (08:19)
--- NOTE | 2024-02-02 09:41 | PC.SS ---
Patient is alert/oriented. at bedside. Patient is Vietnamese speaking only. assisted in interpretation. Patient is from home with family. He is independent with ADL's. Patient to return home with family upon discharge. Patient was admitted from [facility] for bradycardia. Patient follows at [facility] and last appt. was on Friday. He has never seen a Fat Purification Worker. Patient is newly diagnosed for diabetes. He will be getting new medication and teaching for this. Patient pharmacy is [facility]. Possible d/c home today or tomorrow. will be transporting patient home. is alt medical decision maker.
[2024-02-02 10:33] VITALS: BMI 28.0
[2024-02-02 11:47] LABS: Basophils # (Auto) 0.1 Thou/mm3 (0.0-0.2); Basophils % (Auto) 1 % (0-2.5); Eosinophils # (Auto) 0.2 Thou/mm3 (0.0-0.5); Eosinophils % (Auto) 2 % (0-10); Hematocrit 45.4 % (41.0-53.0); Hemoglobin 15.6 g/dL (13.5-16.0); Immature Granulocytes % (Auto) 0 % (0-0); Immature Granulocytes Auto 0.02 Thou/mm3 (0.00-0.00); Lymphocytes # (Auto) 2.3 Thou/mm3 (1.0-4.8); Lymphocytes % (Auto) 29 % (10-50); Mean Corpuscular HGB Conc 34.4 g/dl (31.0-37.0); Mean Corpuscular Hemoglobin 30.1 pg (25.0-35.0); Mean Corpuscular Volume 88 fL (80-100); Monocytes # (Auto) 0.8 Thou/mm3 (0.0-0.8); Monocytes % (Auto) 11 % (0-12); Neutrophils # (Auto) 4.5 Thou/mm3 (1.8-7.7); Neutrophils % (Auto) 57 % (37-80); Nucleated Red Blood Cell % 0 /100 WBC (0); Platelet Count 173 Thou/mm3 (140-440); RDW Standard Deviation 41.5 fL (35.1-43.9); Red Blood Count 5.18 Miln/mm3 (4.50-5.90)
[2024-02-02 12:00] VITALS: BP 122/74; PULSE 46; PULSE 55; RESP 15; TEMP 36.1; O2SAT 99
[2024-02-02 12:08] LABS: Anion Gap 6 (7-16); BUN/Creatinine Ratio 19 Ratio (12-20); Blood Urea Nitrogen 17 mg/dL (9-23); Carbon Dioxide 28.8 mMol/L (20.0-31.0); Chloride 100 mMol/L (98-107); Creatinine (Component) 0.9 mg/dL (0.6-1.3); Estimated Creatinine Clearance 115.9 mL/min (>60); Glucose 243 mg/dL (74-106); Osmolality,Calculated 279 (275-295); Potassium 4.1 mMol/L (3.4-5.1); Sodium 135 mMol/L (136-145); eGFR > 60 See Note
[2024-02-02 16:00] VITALS: BP 124/76; PULSE 52; PULSE 60; RESP 15; TEMP 36; O2SAT 98
[2024-02-02 20:00] VITALS: BP 132/66; PULSE 46; PULSE 59; RESP 16; TEMP 36.6; O2SAT 98
[2024-02-02] MEDS: INSULIN LISPRO (AdmeLOG) 1 UNIT/0.01 ML UNIT 5 UNIT SC (21:18)
[2024-02-03] VITALS: BP 94/61; PULSE 46; PULSE 60; RESP 16; TEMP 36.1; O2SAT 98
[2024-02-03 04:00] VITALS: BP 117/64; PULSE 45; PULSE 48; RESP 18; TEMP 36.1; O2SAT 98
[2024-02-03] MEDS: INSULIN LISPRO (AdmeLOG) 1 UNIT/0.01 ML UNIT 5 UNIT SC (05:21)
[2024-02-03 05:49] VITALS: BMI 28.0
[2024-02-03 06:22] LABS: Basophils # (Auto) 0.1 Thou/mm3 (0.0-0.2); Basophils % (Auto) 1 % (0-2.5); Eosinophils # (Auto) 0.2 Thou/mm3 (0.0-0.5); Eosinophils % (Auto) 3 % (0-10); Hematocrit 44.5 % (41.0-53.0); Hemoglobin 15.6 g/dL (13.5-16.0); Immature Granulocytes % (Auto) 0 % (0-0); Immature Granulocytes Auto 0.02 Thou/mm3 (0.00-0.00); Lymphocytes # (Auto) 2.7 Thou/mm3 (1.0-4.8); Lymphocytes % (Auto) 30 % (10-50); Mean Corpuscular HGB Conc 35.1 g/dl (31.0-37.0); Mean Corpuscular Hemoglobin 30.5 pg (25.0-35.0); Mean Corpuscular Volume 87 fL (80-100); Monocytes # (Auto) 0.8 Thou/mm3 (0.0-0.8); Monocytes % (Auto) 9 % (0-12); Neutrophils # (Auto) 5.1 Thou/mm3 (1.8-7.7); Neutrophils % (Auto) 57 % (37-80); Nucleated Red Blood Cell % 0 /100 WBC (0); Platelet Count 152 Thou/mm3 (140-440); RDW Standard Deviation 40.1 fL (35.1-43.9); Red Blood Count 5.12 Miln/mm3 (4.50-5.90); White Blood Count 8.9 Thou/mm3 (3.8-10.6)
[2024-02-03 07:02] LABS: Alanine Aminotransferase 289 U/L (10-49); Albumin, Serum 5.1 gm/dL (3.5-5.0); Albumin/Globulin Ratio 2.2 (1.2-2.2); Alkaline Phosphatase 119 U/L (46-116); Anion Gap 10 (7-16); Aspartate Amino Transferase 135 U/L (0-34); BUN/Creatinine Ratio 19 Ratio (12-20); Bilirubin,Total 0.8 mg/dL (0.3-1.2); Blood Urea Nitrogen 15 mg/dL (9-23); Calcium 9.7 mg/dL (8.3-10.6); Calcium (Corrected) 9.7 mg/dL (8.5-10.1); Carbon Dioxide 23.7 mMol/L (20.0-31.0); Chloride 102 mMol/L (98-107); Creatinine (Component) 0.8 mg/dL (0.6-1.3); Estimated Creatinine Clearance 130.3 mL/min (>60); Globulin 2.3 gm/dL (2.3-3.5); Glucose 166 mg/dL (74-106); Magnesium 2.1 mg/dL (1.6-2.6); Osmolality,Calculated 276 (275-295); Phosphorous 4.6 mg/dL (2.4-5.1); Potassium 3.8 mMol/L (3.4-5.1); Sodium 136 mMol/L (136-145); Total Protein 7.4 gm/dL (5.7-8.2); eGFR > 60 See Note
[2024-02-03 08:00] VITALS: BP 120/71; PULSE 53; PULSE 71; RESP 18; TEMP 36; O2SAT 99
[2024-02-03] MEDS: THIAMINE 100 MG TABLET PO (08:10)
[2024-02-03] MEDS: FOLIC ACID 1 MG TABLET PO (08:10)
[2024-02-03] MEDS: INSULIN LISPRO (AdmeLOG) 1 UNIT/0.01 ML UNIT SC ×3 (08:10→17:49)
--- NOTE | 2024-02-03 10:57 | PC.PT ---
PT eval received, Patient is 23y/o male. Patient is sitting on the EOB upon approached. Patient and at bedside states he has been ambulating to go to the restroom. No further needs at this time. Skilled PT not indicated at this time. Patient is I with transfers and ambulation without AD.
[2024-02-03 12:00] VITALS: BP 116/74; PULSE 58; PULSE 64; RESP 13; TEMP 36.3; O2SAT 99
--- NOTE | 2024-02-03 13:46 | PD.RESPRO ---
Documentation for date of: 02/03/24 Subjective Subjective Interval history: No acute overnight events. Still has mild dizziness when getting up. Denies fever, chills, headaches, chest pain, sob, cough, GI or urinary symptoms. Exam Vital Signs Temp Pulse Resp BP Pulse Ox O2 Del Method 96.8 F 53 L 18 120/71 99 Room Air 02/03/24 08:00 02/03/24 08:00 02/03/24 08:00 02/03/24 08:00 02/03/24 08:00 02/03/24 08:00 Narrative Exam GENERAL: Normal appearing adult male, NAD HEENT: NCAT.?PHONG. Oral mucosa is moist. Patent Nares NECK: Supple, nontender, no thyromegaly, no meningismus, no JVD, no step offs CHEST: Symmetrical, atraumatic, and with equal expansion, Nontender on palpation no deformity and no crepitus. CARDIOVASCULAR: RRR, no m/g/r LUNGS: CTAB, no w/r/r. Symmetrical chest rise. No intercostal subcostal retraction. ABDOMEN: Soft, flat, nontender. No guarding/rebound tenderness/masses. +BS EXTREMITIES: Nontender.? No edema/cyanosis.?Moves all 4 extremities well, with full ROM and good CSM. SKIN: Warm and dry, no jaundice/rashes. MSK: No lumbar or midline, no CVA, no paraspinal muscle spasm or tenderness. NEURO: FISHER x4, CN II-XII grossly intact.?No focal neurologic deficits. PSYCHIATRIC: Normal mood and affect, cooperative, no SI or HI or hallucinations. Objective Labs 02/03/24 05:49 02/03/24 05:49 Labs: Laboratory Results - last 24 hr 02/03/24 05:49 WBC 8.9 RBC 5.12 Hgb 15.6 Hct 44.5 MCV 87 MCH 30.5 MCHC 35.1 RDW Std Deviation 40.1 Plt Count 152 Neut % (Auto) 57 Lymph % (Auto) 30 Bath % (Auto) 9 Eos % (Auto) 3 Baso % (Auto) 1 Neut # (Auto) 5.1 Lymph # (Auto) 2.7 Bath # (Auto) 0.8 Eos # (Auto) 0.2 Baso # (Auto) 0.1 Immature Gran # (Auto) 0.02 H Absolute Nucleated RBC 0.00 Immature Gran % 0 Nucleated RBC % 0 Sodium 136 Potassium 3.8 Chloride 102 Carbon Dioxide 23.7 Anion Gap 10 BUN 15 Creatinine 0.8 Estim Creat Clear Calc 130.3 eGFR > 60 BUN/Creatinine Ratio 19 Glucose 166 H D Calculated Osmolality 276 Calcium 9.7 Corrected Calcium 9.7 Phosphorus 4.6 Magnesium 2.1 Total Bilirubin 0.8 AST 135 H ALT 289 H Alkaline Phosphatase 119 H Total Protein 7.4 Albumin 5.1 H Globulin 2.3 Albumin/Globulin Ratio 2.2 Quality Measures Quality Measures none Assessment & Plan Assessment Current Active Medications: Generic Name Dose Route Start Last Admin Trade Name Freq PRN Reason Stop Dose Admin Acetaminophen 650 mg 02/01/24 00:35 Acetaminophen 325 Mg Tablet PO 03/02/24 00:34 Q6H PRN Fever >101.5 Dextrose 25 ml 02/01/24 00:53 Dextrose 50%-Water Inj 50 Ml Syringe IV 03/02/24 00:52 Q15MIN PRN BG 50-70 responsive npo pt Dextrose 50 ml 02/01/24 00:53 Dextrose 50%-Water Inj 50 Ml Syringe IV 03/02/24 00:52 Q15MIN PRN BG <50 OR BG <70 & pt unresponsive Folic Acid 1 mg 02/01/24 09:00 02/03/24 08:10 Folic Acid 1 Mg Tablet PO 03/02/24 08:59 1 mg DAILY [facility] Administration Glucagon 1 mg 02/01/24 00:53 Glucagon Inj 1 Mg Vial IM Q15MIN PRN BG <70, and no IV access Insulin Glargine 20 unit 02/03/24 21:00 Insulin Glargine (Lantus) 5 Unit/0.05 Ml (Per 5 Units) SC 03/04/24 20:59 HS [facility] Insulin Human Lispro 0 unit 02/01/24 07:30 02/03/24 12:50 Insulin Lispro (Admelog) 1 Unit/0.01 Ml Unit SC 03/02/24 07:29 2 unit ACHS [facility] Administration Protocol Thiamine HCl 100 mg 02/01/24 09:00 02/03/24 08:10 Thiamine 100 Mg Tablet PO 03/02/24 08:59 100 mg DAILY [facility] Administration Plan In summary: 3-year-old male with no PMHx, came to ED with 2 days of dizziness, polyuria, polydipsia. Admitted for symptomatic sinus bradycardia HR 40s, and new onset diabetes, GLUCOSE 231, A1c 11.8. Cardiology following, recommended monitoring and treating diabetes. Echocardiogram normal with EF 55 to 60%. # Symptomatic bradycardia (stable) # Subclinical Hypothyroidism Admission HR 40s, BP 132/74, patient complains of dizziness on standing up. No orthostatic changes on check in ER EKG sinus bradycardia, CXR minimally enlarged cardiac silhouette Currently, HR 62, BP 136/109 TSH 6.5, free T4 1.3 normal Cardiology following, pending echo, no recs yet ? Med/tele ? Pending echocardiogram ? Pending cardiology recommendations ? Will need outpatient f/u with PCP, recheck TSH/fT4 in 3 months # New onset diabetes Not previously diagnosed, A1c 11.8, GLUCOSE controlled with current regimen ? Diabetes education ? Accu-Cheks ? CHO consistent diet ? Lispro sliding scale, Lantus 10 unitis daily # Transaminitis (improving) Chronic alcohol use, admission ALT 211, AST 80, ALP 133, inconsistent with alcoholic hepatitis pattern. Denies abdominal pain ? Pending hepatitis panel ? Pending abdominal ultrasound ? Pending GGT # Pseudohyponatremia (resolved) ? No clinical significance # Alcoholism ? Counselling, refer to SW ? Given banana bag x 1 ? Thiamine and Folic acid # Thrombocytopenia (stable) PLT 107 today, no signs of active bleed, Hgb 15.7 ? Daily CBC Health maintenance Diet: CHO consistent GI prophylaxis: Not indicated DVT prophylaxis: SCDs Antibiotics: Not indicated CODE STATUS: Full code Disposition: Pending cardiology recommendations Patient case was discussed with attending, Cal Martinez MD and senior resident Dr. Mcallister. Loree Renner DO PGYI
--- NOTE | 2024-02-03 14:46 | ESDS_ITS ---
<Statement entered by Jere Mcallister MD - 02/03/24 15:05> Patient was examined with the team including attending physician. Note reviewed, I agree with the discharge plan as documented. - Jere Mcallister MD, PGY 2 Planned Discharge Date 02/03/24 DS: Providers Provider Date of admission: 02/01/24 00:36 Primary care physician: Mo Adhikari MD Admitting Provider: Alvaro Lowe MD Attending Provider on Admission: Cal Martinez MD Consults: 02/01/24 03:13 Referral Registered Dietitian Routine Comment: 02/01/24 04:20 [facility] Referral - Knowledge Deficit Routine Comment: Positive screening for knowledge deficit needs. 02/01/24 10:20 Consult to Cardiology Routine Comment: Symptomatic bradycardia Consulting Provider: Natasha Osuna 02/03/24 10:35 Referral Physical Therapy Routine Comment: Physician Instructions: Attending Provider on DC: Cal Martinez MD Discharging Provider: Cal Martinez MD DS: Diagnosis Problem List Completed Was Problem List Reviewed/Reconciled?: Yes Hospital Course Hospital Course Hospital course: Is a 23-year-old male with no PMHx, came to ED with 2 days of dizziness, polyuria, polydipsia. Admitted for symptomatic sinus bradycardia HR 40s, and new onset diabetes. Patient seen by cardiology, echocardiogram was normal with EF 55-60%. 30 cardia improved after controlling diabetes for which patient was started on INSULIN. Patient stable for discharge to home. He will follow-up with PCP regarding diabetes management and with cardiology for possible Holter monitor. PATIENT INSTRUCTIONS: Follow-up with PCP within 1 week of discharge, discussed diabetes management, subclinical hypothyroidism, and transaminitis which currently have improved Follow-up with cardiology within 1-2 weeks of discharge Continue using INSULIN as prescribed below: * INSULIN DEGLUDEC 15 units daily * INSULIN LISPRO 5 units 3 times daily Continue using bennett style 3 GLUCOSE monitor ADMISSION DIAGNOSES: # Symptomatic bradycardia # Subclinical Hypothyroidism [TSH 6.5, free T4 1.3 normal] # New onset diabetes # Transaminitis (improving) # Pseudohyponatremia (resolved) # Alcoholism # Thrombocytopenia (stable) Patient case was discussed with attending, Cal Martinez MD and senior residents Dr. Dos Santos and Dr. Mcallister. Loree Renner DO PGYI Time Spent with Patient Time attestation: Total time spent providing and/or coordinating discharge services: Greater than 35 minutes. Exam Vital Signs Temp Pulse Resp BP Pulse Ox O2 Del Method 97.4 F 58 L 13 116/74 99 Room Air 02/03/24 12:00 02/03/24 12:00 02/03/24 12:00 02/03/24 12:00 02/03/24 12:00 02/03/24 12:00 Narrative Exam GENERAL: Normal appearing adult male, NAD HEENT: NCAT.?PHONG. Oral mucosa is moist. Patent Nares NECK: Supple, nontender, no thyromegaly, no meningismus, no JVD, no step offs CHEST: Symmetrical, atraumatic, and with equal expansion, Nontender on palpation no deformity and no crepitus. CARDIOVASCULAR: RRR, no m/g/r LUNGS: CTAB, no w/r/r. Symmetrical chest rise. No intercostal subcostal retraction. ABDOMEN: Soft, flat, nontender. No guarding/rebound tenderness/masses. +BS EXTREMITIES: Nontender.? No edema/cyanosis.?Moves all 4 extremities well, with full ROM and good CSM. SKIN: Warm and dry, no jaundice/rashes. MSK: No lumbar or midline, no CVA, no paraspinal muscle spasm or tenderness. NEURO: FISHER x4, CN II-XII grossly intact.?No focal neurologic deficits. PSYCHIATRIC: Normal mood and affect, cooperative, no SI or HI or hallucinations. Discharge Plan Plan Patient Disposition: HOME (Self Care) Disposition Comment: Back to baseline Patient condition on transfer: Stable Prescriptions/Referrals Prescriptions/Med Rec: New (DME) FreeStyle Bennett 3 Plus Sensor Device See Rx Instructions .Route Qty: 1 0RF Rx Instructions: As directed (DME) pen needle, diabetic 29 gauge x 1/2 needle See Rx Instructions .Route Qty: 100 0RF Rx Instructions: As directed insulin lispro 100 unit/mL insulin pen 5 unit subcut TIDWMEAL 30 Days Qty: 4.5 0RF insulin degludec 100 unit/mL (3 mL) insulin pen 15 unit subcut QPM 30 Days Qty: 4.5 0RF Referrals: Mo Adhikari MD [Primary Care Provider] - Patient/Caregiver Discharge Instructions Other Discharge Activity Instructions:: Please follow up at the [facility] Dr. Vargas on 02/02/2024 at 10:00 AM. Card has been provided. Discussed discussed diabetes management, subclinical hypothyroidism, and transaminitis which currently have improved. Follow-up with PCP within 1 week of discharge Follow-up with cardiology within 1-2 weeks of discharge Continue using INSULIN as prescribed below: - INSULIN DEGLUDEC 15 units daily - INSULIN LISPRO 5 units 3 times daily Continue using bennett style [address] GLUCOSE monitor [address] [place] [address] Education Materials: Diabetes and Drinking Alcohol, Using a Blood Sugar Log, High Blood Sugar (Hyperglycemia), How to Check Your Blood Sugar, Eating Out When You Have Diabetes, Diabetes: The Benefits of Exercise, Insulin Injection Steps Print Language: Mauritanian Stand Alone Forms: Geetha Award Info., Patient Portal Info Letter, Work/Release Restrictions Discharge Order Discharge Orders: Discharge (Routine); Ordered 02/03/24 Ordered By: Loree Renner Quality Discharge Quality Measures VTE prophylaxis MD Attestestation MD Attestation I reviewed labs, imaging, EKG, home medications and prior available records. Face to face evaluation was performed by me. I have personally examined the patient and discussed assessment and plan with the IM team. I reviewed the resident note and agree with the plan with exceptions as below. Symptomatic bradycardia: Likely related to hyperglycemia and less likely symptomatic bradycardia. Management of hyperglycemia as below. Ordered echocardiogram: Showed preserved EF with no pertinent abnormalities. Ordered free T4 that was WNL. Avoid beta-blockers and calcium channel blockers. Consulted cardiology. Recommended management of hyperglycemia. Okay to discharge. Transaminitis: Ordered liver ultrasound that showed fatty liver disease. Recommended diabetic control and exercise program. Repeat LFTs in 1 week. New onset diabetes mellitus: Likely type I. Started the patient on insulin Lantus plus lispro with meals. Monitor fingersticks. Thrombocytopenia: Mild. No signs of active bleeding. Monitor platelet level. Time spent is 40 minutes. More than 50% of the time was spent on patient education and coordination of care.
--- NOTE | 2024-02-03 15:44 | PC.CC ---
Met w/ patient and for DM and insulin education. JIMMY Staley, assisted with Polish interpretation. Discussed role and use of long acting and mealtime insulin. Demonstrated use of insulin pen and verified with teach-back. Discussed insulin administration, hypoglycemia recognition and next steps. Discussed role of CGM. Emphasized importance of routine primary care and encouraged patient to make appointment to be seen within 2 weeks. Patient denies any vision problems or neuropathy at this time. 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 Patient plans to administer long acting insulin in the morning and use mealtime insulin at breakfast and dinner. Patient asked pertinent questions and were answered to his satisfaction. Encouraged patient to practice insulin administration with nursing while he remains. CGM has been approved by insurance. Requested change from Tresiba vial to insulin pen from Dr. Mcallister.
[2024-02-03 16:00] VITALS: BP 123/79; PULSE 53; PULSE 54; RESP 18; TEMP 35.8; O2SAT 98
--- NOTE | 2024-02-04 15:49 | PC.CC ---
S/W [facility] and updated on approved PA. Claim processed successfully.
[2024-02-09 06:49] LABS: Gamma Glutamyl Transpeptidase* 83 U/L (3-70)
== END 2024-02-03 18:42 | disposition home or self-care (01) ==
LOC: SERX 21:59 → SERHOLD 02-02 05:36 → S2NX 02-02 05:36
PROVIDERS: Physician Assistant; Admitting Provider Internal Medicine; Emergency Provider Emergency Medicine; PCP Family Medicine; Visit Provider Student in an Organized Health Care Education/Training Program
DX: E11.65 Type 2 diabetes mellitus with hyperglycemia (principal); R00.1 Bradycardia, unspecified; I51.7 Cardiomegaly; F10.20 Alcohol dependence, uncomplicated; E03.8 Other specified hypothyroidism; D69.6 Thrombocytopenia, unspecified; R74.01 Elevation of levels of liver transaminase levels
CPT/HCPCS: 36415; 71045; 76700; 80048; 80053; 80061; 80074; 80307; 80320; 81001; 82977; 83036; 83735; 83880; 84100; 84439; 84443; 84484; 85025; 93005; 93306; 96360; 96361; 99285; G0378; J1815; J7030; A9270; G0480

== ENCOUNTER 2024-03-03 08:55 | Outpatient (AMB) | payer MEDICAID, SELFPAY ==
--- NOTE | 2024-03-03 09:52 | ACNOTE_ITS ---
Allergies/Meds Allergies & Medications Allergies No Known Allergies Allergy (Verified 01/31/24 18:40) MA Intake Visit Data Collection PCP or OBGYN visit in last 3 months: No Smoking Status Smoking Status: Never smoker Immunization / Flu Flu Vaccine in the Last 12 Months: Yes Flu Vaccine Exclusion Criteria: No Exclusion Criteria Past Medical History Past Medical History NEUROLOGIC: Negative Neurological Disorders CARDIAC: Negative Cardiac Disorders or Congestive Heart Failure RESPIRATORY: Negative Chronic Obstructive Pulmonary Disease (COPD) GASTROINTESTINAL: Negative Gastrointestinal Disorders or Hepatitis GENITOURINARY: Negative Genitourinary Disorders or Renal Disease ENDOCRINE: Negative Endocrine Disorders, Diabetes Mellitus Type 1 or Diabetes Mellitus Type 2 HEMATOLOGIC: Negative Blood Disorders OTHER HISTORY: Negative Hospitalization, Autoimmune Disease, Down Syndrome, Developmental Delay, Shingles, Falls, Blood Transfusions, Anesthesia Reactions, Organ Transplant, Chemotherapy, Radiation Therapy, Hyperbaric Therapy, MRSA, VRSA, Vancomycin-Resistant Enterococci, Human Immunodeficiency Virus (HIV), Chicken Pox, Measles, Mumps, Rubella (Czech Measles), Pertussis, Clostridium Difficile or Cancer Family History FAMILY HISTORY: Negative Family Psychiatric Problems, Family Respiratory Disorders, Family Cardiac Disorders, Family Gastrointestinal Problems, Family Cancer, Family Surgery or Family Anesthesia Reaction Surgical History SURGICAL: Negative Organ Transplant Social History SMOKING STATUS: Smoking status: Never smoker ALCOHOL: Alcohol Intake: Current ALCOHOL FREQUENCY: Alcohol Intake Frequency: 3 or More Drinks per Day HOUSING: Housing: Apartment LIVES WITH: Lives With: Spouse Patient Portal Gurjit Social History Living Situation History Housing: Apartment Tobacco History Smoking Status: Never smoker Alcohol History Alcohol Intake: Current Alcohol Intake Frequency: 3 or More Drinks per Day Alcohol Intake Frequency Other:: 5x a week after work, 32 oz beer daily x 2-3 years Review of Systems Report any current symptoms Only answer those that you have currently: Past Medical History Past Medical History Have you ever been diagnosed with any of the following: Cardiology Problems Congestive Heart Failure: No Respiratory Problems Chronic Obstructive Pulmonary Disease (COPD): No Stomache/Intestinal Problems Hepatitis: No Genital/Urinary Problems Renal Disease: No Endocrine Problems Diabetes Mellitus Type 1: No Diabetes Mellitus Type 2: No Other Problems Hospitalization: No Autoimmune Disease: No Down Syndrome: No Developmental Delay: No Shingles: No Falls: No Blood Transfusions: No Anesthesia Reactions: No Organ Transplant: No Chemotherapy: No Radiation Therapy: No Hyperbaric Therapy: No MRSA: No VRSA: No Vancomycin-Resistant Enterococci: No Human Immunodeficiency Virus (HIV): No Chicken Pox: No Measles: No Mumps: No Rubella (Czech Measles): No Pertussis: No Clostridium Difficile: No Cancer: No History of Present Illness HPI Narrative This is a 23 year-old male following-up for a hospital admission last month. He presented with dizziness, polyuria, polydipsia; admitted for symptomatic bradycardia and found to have new onset diabetes with A1C 11.9. Cardiac workup was benign with ECHO showing EF 55-60%. Currently seeing Dr. Osuna regularly, last appointment was last week. No medication prescribed by cardiology. No abnormal cardiac findings. Patient currently asymptomatic. He was discharged on INSULIN DEGLUDEC 15 units and LISPRO 5 units TID. He uses freestyle khadijah which was given at the hospital but was not covered by [employer]. He is only checking PREMEAL GLUCOSE, infrequently, and it runs around 110 ? 120. Freestyle khadijah options. Average GLUCOSE 180-200, with postmeal spikes up to 240. Headaches, dizziness, lightheadedness, loss of consciousness, fall, chest pain, shortness of breath, palpitations, cough, abdominal pain N/V/D/C, polyuria, polydipsia. Objective/Exam Narrative Physical exam: GENERAL * Normal appearing adult male, NAD HEENT * NCAT.?PHONG. Oral mucosa is moist. Patent Nares NECK * Supple, nontender, no thyromegaly, no meningismus, no JVD, no step offs CHEST * RRR, no m/g/r * CTAB, no w/r/r. Symmetrical chest rise. No intercostal subcostal retraction * Atraumatic, nontender, no crepitus, symmetrical expansion. ABDOMEN * Soft, flat, nontender. No guarding/rebound tenderness/masses. * Bowel sounds presents EXTREMITIES * Nontender, no cyanosis, no edema * No edema/cyanosis.? SKIN * Warm and dry, no jaundice/rashes. NEUROMUSCULAR * No lumbar or midline, no CVA, no paraspinal muscle spasm or tenderness. * Moves all 4 extremities well, with full ROM and good CSM. * FISHER x4, CN II-XII grossly intact. * No focal neurologic deficits. PSYCHIATRY * Normal mood and affect, cooperative, no SI or HI or hallucinations. Assessment & Plan Diagnosis / Problem List (1) Insulin dependent diabetes mellitus: Status: Acute Assessment & Plan: Newly diagnosed DM, currently on insulin which was started during last month hospital visit. At the time he presented with symptomatic bradycardia, nausea, dizziness, polydipsia and polyuria. His symptoms have resolved since he started INSULIN. He is taking INSULIN as prescribed: DEGLUDEC 15 units nightly and LISPRO 5 units TID. Average GLUCOSE reported around 110-120 afternoon per patient. However GLUCOSE monitor showed average 180-220 with frequent spikes in 240 after meals. Fingerstick GLUCOSE 237. Plan: ? Increased DEGLUDEC to 18 units ? Continue lispro 5 units TID ? Provided education on INSULIN use, maintain target morning GLUCOSE around 140 and postmeal less than 180?200. Increase or decrease night dose or LISPRO as needed to maintain target GLUCOSE. Detailed instruction provided to patient. ? Continue Accu-Cheks in the AM, PM, pre and postmeal. ? Patient insurance does not cover freestyle khadijah. ? Will consider INSULIN sensitivity, C-peptide workup during next visit. ? Follow-up within 1 month (2) Bradycardia: Status: Acute Assessment & Plan: Recently admitted for symptomatic bradycardia, HR 58, with dizziness and lightheadedness. Workup including echocardiogram and EKG were benign. He is following up with Dr. Osuna in [place]. Denies chest pain, shortness of breath, palpitations, lightheadedness or dizziness. ? Continue to follow-up with Dr. Osuna. Office Procedures [facility] Level of Care Nursing/Assessment Patient Status: Established Patient Nursing Assessment/Reassessment: Medication Reconciliation, Update PMH in EMR and Vital Signs Coordination of Care: Complex Care and Chronic Disease 1-5, Education Simp Pt/Fam and Staff clarify orders Miscellaneous Interventions: Blood/Urine Collection Established Patient Charge Established Patient Point Assignment: 110 Established Patient Point Charge: EP Level 3 (80-115) Results Glucose Glucose 160 mg/dL Last Edit by Danelle Rodrigez MA on 03/03/24 09:54
== END 2024-03-03 09:42 | disposition home or self-care (01) ==
LOC: HODAHC 08:55
PROVIDERS: Supervising Provider Internal Medicine
DX: E11.9 Type 2 diabetes mellitus without complications (principal); R00.1 Bradycardia, unspecified; Z79.4 Long term (current) use of insulin
CPT/HCPCS: 99213; G0463